=== PATIENT | female | born 1985 | race Caucasian/White ===

== ENCOUNTER 2017-11-28 15:22 | Emergency (ER) | payer OTHER ==
--- NOTE | 2017-11-28 15:49 | ER Report ---
History and Physical Time Seen By MD: 15:32 Hx. of Stated Complaint: PT IS ON A ROAD TRIP [place]. TODAY RIGHT LOWER LEG STARTED HURTING, AND PT NOTICED SOME SWELLING. PT IS DRIVING AROUND 9 HOURS A DAY, THEY ARE ON DAY 4 OF THE TRIP. PT HAS HISTORY OF "VEIN SURGERY" HPI/ROS CHIEF COMPLAINT: Right leg pain HISTORY OF PRESENT ILLNESS: Patient is a 32-year-old female who presents the ED with complaint of intermittent right leg pain. She has been traveling in a car for the past 4 days. She states that she is having home to [place] from [place] and was concerned that she was developing a blood clot. She states that she has had a history of varicose veins and some superficial blood clots. She has not noted any swelling or redness. She has had this intermittent pain which currently is not there. She denies any shortness of breath or chest pain. She has no history of a DVT or PE in the past. She is not on any blood thinners. REVIEW OF SYSTEMS: Constitutional: No fever, no chills. Cardiovascular: No chest pain, no palpitations. Respiratory: No cough, no shortness of breath. Musculoskeletal: No back pain. Skin: No rashes. Neurological: No headache. Allergies: Coded Allergies: No Known Drug Allergies (Unverified , 11/28/17) Reviewed Nurses Notes: Yes Old Medical Records Reviewed: Yes Constitutional Vital Sign - Last 24 Hours 11/28/17 15:28 Temp 97.8 Pulse 71 Resp 16 B/P (MAP) 137/95 Pulse Ox 97 O2 Delivery Room Air Physical Exam General Appearance: The patient is alert, has no immediate need for airway protection and no signs of toxicity. Patient appears to be in no acute distress. Respiratory: There are no retractions, lungs are clear to auscultation. Cardiovascular: Regular rate and rhythm. Gastrointestinal: Abdomen is soft and non tender, no masses, bowel sounds normal. Skin: Warm and dry, no rashes. Musculoskeletal: Neck is supple non tender. There is no real pain with palpation of the right lower extremity. She states the pain she was noticing is in her right medial ankle and popliteal fossa area. No obvious swelling or ecchymosis appreciated. There is some very faint erythema around a varicose vein on the medial aspect of the right ankle but quite faint and small. PT and DP pulses are 2+ with normal capillary refill. Normal sensation. Full range of motion with no pain. Negative Homans sign. DIFFERENTIAL DIAGNOSIS: After history and physical exam differential diagnosis was considered for flank pain including leg strain, cellulitis, DVT, SVT Medical Decision Making Data Points Result Diagram: 11/28/17 1545 11/28/17 1545 Laboratory Hematology Test 11/28/17 15:45 Red Blood Count 4.31 M/uL (4.17-5.56) Mean Corpuscular Volume 92.7 fL (80.0-96.0) Mean Corpuscular Hemoglobin 32.8 pg (26.0-33.0) Mean Corpuscular Hemoglobin Concent 35.4 g/dL (32.0-36.0) Red Cell Distribution Width 13.0 % (11.5-14.5) Mean Platelet Volume 7.6 fL (7.2-11.1) Neutrophils (%) (Auto) 60.5 % (39.4-72.5) Lymphocytes (%) (Auto) 31.7 % (17.6-49.6) Monocytes (%) (Auto) 5.8 % (4.1-12.4) Eosinophils (%) (Auto) 1.6 % (0.4-6.7) Basophils (%) (Auto) 0.4 % (0.3-1.4) Nucleated RBC Relative Count (auto) 0.0 /100WBC Neutrophils # (Auto) 4.8 K/uL (2.0-7.4) Lymphocytes # (Auto) 2.5 K/uL (1.3-3.6) Monocytes # (Auto) 0.5 K/uL (0.3-1.0) Eosinophils # (Auto) 0.1 K/uL (0.0-0.5) Basophils # (Auto) 0.0 K/uL (0.0-0.1) Nucleated RBC Absolute Count (auto) 0.00 K/uL D-Dimer Quantitative (PE/DVT) < 0.27 ug/ml (0-0.50) Sodium Level 139 mmol/L (137-145) Potassium Level 4.0 mmol/L (3.5-5.0) Chloride Level 102 mmol/L (98-107) Carbon Dioxide Level 28 mmol/L (22-31) Blood Urea Nitrogen 15 mg/dl (7-18) Creatinine 0.90 mg/dl (0.52-1.04) Glomerular Filtration Rate Calc > 60.0 Random Glucose 102 mg/dl (75-110) Calcium Level 9.1 mg/dl (8.4-10.2) Chemistry Test 11/28/17 15:45 White Blood Count 7.9 k/uL (4.5-11.0) Red Blood Count 4.31 M/uL (4.17-5.56) Hemoglobin 14.1 g/dL (12.0-16.0) Hematocrit 40.0 % (34.0-47.0) Mean Corpuscular Volume 92.7 fL (80.0-96.0) Mean Corpuscular Hemoglobin 32.8 pg (26.0-33.0) Mean Corpuscular Hemoglobin Concent 35.4 g/dL (32.0-36.0) Red Cell Distribution Width 13.0 % (11.5-14.5) Platelet Count 248 K/uL (150-450) Mean Platelet Volume 7.6 fL (7.2-11.1) Neutrophils (%) (Auto) 60.5 % (39.4-72.5) Lymphocytes (%) (Auto) 31.7 % (17.6-49.6) Monocytes (%) (Auto) 5.8 % (4.1-12.4) Eosinophils (%) (Auto) 1.6 % (0.4-6.7) Basophils (%) (Auto) 0.4 % (0.3-1.4) Nucleated RBC Relative Count (auto) 0.0 /100WBC Neutrophils # (Auto) 4.8 K/uL (2.0-7.4) Lymphocytes # (Auto) 2.5 K/uL (1.3-3.6) Monocytes # (Auto) 0.5 K/uL (0.3-1.0) Eosinophils # (Auto) 0.1 K/uL (0.0-0.5) Basophils # (Auto) 0.0 K/uL (0.0-0.1) Nucleated RBC Absolute Count (auto) 0.00 K/uL D-Dimer Quantitative (PE/DVT) < 0.27 ug/ml (0-0.50) Glomerular Filtration Rate Calc > 60.0 Calcium Level 9.1 mg/dl (8.4-10.2) Coagulation Test 11/28/17 15:45 D-Dimer Quantitative (PE/DVT) < 0.27 ug/ml ED Course/Re-evaluation ED Course Will obtain labs. 11/28/2017 4:19:12 pm - discussed labs with patient. She did have a negative d- dimer. There appears to be no need for further evaluation with ultrasound. She does have that slight erythema overlying a superficial vein likely some very mild superficial phlebitis and discussed the aspirin with warm compresses. She states that she did take aspirin today. She has had an issue with superficial phlebitis in the past and has had some of her varicose veins removed. Decision to Disposition Date: Nov 28, 2017 Decision to Disposition Time: 16:19 Depart Departure Latest Vital Signs Vital Signs Date Time Temp Pulse Resp B/P (MAP) Pulse Ox O2 Delivery O2 Flow Rate FiO2 11/28/17 15:28 97.8 71 16 137/95 97 Room Air Impression: Primary Impression: Superficial phlebitis and thrombophlebitis of right lower extremity Condition: Improved Disposition: HOME OR SELF-CARE Patient Instructions: Superficial Thrombophlebitis (ED) Additional Instructions: May take aspirin and apply warm compresses. Follow-up with primary care provider in 2-3 days. If having any worsening or concerning symptoms may return to the emergency department. SONAM JOHNSON PA-C Nov 28, 2017 15:50
[2017-11-28 15:58] LABS: PLATELET COUNT, AUTOMATED 248 K/uL (150-450)
[2017-11-28 16:00] VITALS: BP 103/76
== END 2017-11-28 16:28 | disposition home or self-care (01) ==
LOC: ER 15:44
DX: I80.01 Phlebitis and thrombophlebitis of superficial vessels of right lower extremity (principal)
CPT/HCPCS: 36415; 82310; 82374; 82435; 82565; 82947; 84132; 84295; 84520; 85025; 85379; 99282